=== PATIENT | female | born 1940 | race Caucasian/White ===

== ENCOUNTER → 2021-05-13 10:50 | Outpatient (BNVA) | payer MEDICARE, SELFPAY | PROVIDERS: PCP Nurse Practitioner; Visit Provider Nurse Practitioner | DX: E11.65 Type 2 diabetes mellitus with hyperglycemia (principal); I10 Essential (primary) hypertension | CPT/HCPCS: 80053; 80061; 83036; 84443 ==

== ENCOUNTER → 2021-07-29 12:21 | Outpatient (BNVA) | payer MEDICARE, SELFPAY | PROVIDERS: PCP Nurse Practitioner; Visit Provider Nurse Practitioner | DX: E11.65 Type 2 diabetes mellitus with hyperglycemia (principal); E03.8 Other specified hypothyroidism; I10 Essential (primary) hypertension | CPT/HCPCS: 80053; 83036 ==

== ENCOUNTER → 2022-01-06 12:09 | Outpatient (BNVA) | payer MEDICARE, SELFPAY | PROVIDERS: PCP Nurse Practitioner; Visit Provider Nurse Practitioner | DX: I10 Essential (primary) hypertension (principal); E11.65 Type 2 diabetes mellitus with hyperglycemia | CPT/HCPCS: 80053; 80061; 83036; 84443 ==

== ENCOUNTER → 2022-06-02 12:41 | Outpatient (BNVA) | payer MEDICARE, SELFPAY | PROVIDERS: PCP Nurse Practitioner; Visit Provider Nurse Practitioner | DX: E11.65 Type 2 diabetes mellitus with hyperglycemia (principal) | CPT/HCPCS: 80053; 80061; 83036; 84443 ==

== ENCOUNTER → 2022-12-22 09:05 | Outpatient (BNVA) | payer MEDICARE, SELFPAY | PROVIDERS: PCP Nurse Practitioner; Visit Provider Nurse Practitioner | DX: E11.65 Type 2 diabetes mellitus with hyperglycemia (principal) | CPT/HCPCS: 80053; 80061; 83036 ==

== ENCOUNTER → 2022-12-23 10:33 | Outpatient (BNVA) | payer MEDICARE, SELFPAY | PROVIDERS: PCP Nurse Practitioner; Visit Provider Nurse Practitioner | DX: E11.65 Type 2 diabetes mellitus with hyperglycemia (principal) | CPT/HCPCS: 82043 ==

== ENCOUNTER → 2024-08-09 14:30 | Outpatient (BNVA) | payer MEDICARE, SELFPAY | PROVIDERS: PCP Nurse Practitioner; Visit Provider Podiatrist Foot & Ankle Surgery | DX: L60.3 Nail dystrophy (principal); M20.41 Other hammer toe(s) (acquired), right foot; M20.42 Other hammer toe(s) (acquired), left foot; M21.619 Bunion of unspecified foot; E11.69 Type 2 diabetes mellitus with other specified complication | CPT/HCPCS: 99203 ==

== ENCOUNTER → 2025-01-07 09:01 | Outpatient (BNVA) | payer MEDICARE, SELFPAY | PROVIDERS: PCP Nurse Practitioner; Visit Provider Nurse Practitioner | DX: I51.7 Cardiomegaly (principal) | CPT/HCPCS: 71046 ==

== ENCOUNTER 2025-02-04 11:59 | Outpatient (CLI) | payer MEDICARE, SELFPAY ==
--- NOTE | 2025-02-04 12:00 | USCV_ITS ---
Nery Jimenes Age: 84 Gender: F : 1940 Exam Date: 02/04/2025 12:25 Ordering Phys: Chacho Jacobson Technologist: Exam Location: [facility] [place] Indication: CP BP: 123 / 70 HR: 56 Rhythm: Sinus Technical Quality: MEASUREMENTS (Male / Female) Normal Values 2D ECHO LV Diastolic Diameter PLAX 4.6 cm 4.2 - 5.9 / 3.9 - 5.3 cm IVS Diastolic Thickness 1.1 cm 0.6 - 1.0 / 0.6 - 0.9 cm IVS Systolic Thickness 1.3 cm LVPW Diastolic Thickness 1.2 cm 0.6 - 1.0 / 0.6 - 0.9 cm LVPW Systolic Thickness 1.7 cm LVOT Diameter 1.9 cm LV Ejection Fraction 2D Teich 73.7 % LV Ejection Fraction MOD 4C 53.9 % LV Ejection Fraction MOD 2C 61.0 % LV Ejection Fraction 2C AL 62.0 % LA Diameter 3.3 cm RA Systolic Volume 4C AL 29.4 ml RA Systolic Volume 4C MOD 27.8 ml Aorta at Sinotubular Diameter 3.0 cm IVC Diameter 1.5 cm M-MODE LA Ao Ratio MM 1.1 AV Cusp Separation MM 2.1 cm DOPPLER LVOT Peak Velocity 83.0 cm/s MV Peak Velocity 93.0 cm/s MV Area PHT 3.1 cm squared Mitral E to A Ratio 0.8 TV Peak Velocity 265.0 cm/s TR Peak Velocity 315.0 cm/s TR Peak Gradient 39.7 mmHg TV Peak E Velocity 95.0 cm/s PV Peak Velocity 88.0 cm/s FINDINGS Left Ventricle Normal left ventricular size and systolic function, EF 61%. No regional wall motion abnormalities. Right Ventricle Normal right ventricular size and systolic function. Right Atrium Normal right atrial size. Left Atrium Normal left atrial size. Mitral Valve Trace mitral valve regurgitation. Aortic Valve Trace aortic valve regurgitation. Thickened aortic valve. Tricuspid Valve Mild tricuspid valve regurgitation. Estimated pulmonary artery peak systolic pressure 46 mmHg Pulmonic Valve Pulmonic valve not well visualized. Pericardium No pericardial effusion. Aorta Normal aortic annulus size. IVC Normal inferior vena cava. CONCLUSIONS Normal left ventricular size and systolic function, EF 61%. No regional wall motion abnormalities. Trace mitral valve regurgitation. Thickened aortic valve. Trace aortic valve regurgitation. Mild tricuspid valve regurgitation. Estimated pulmonary artery peak systolic pressure 46 mmHg. There are no intracardiac masses. There is no pericardial effusion. No similar previous studies are available for comparison Dr Angelita Heller MD [facility] (Electronically Signed) Final Date: 05 February 2025 20:19 S
== END 2025-02-04 12:00 | disposition home or self-care (01) ==
PROVIDERS: PCP Nurse Practitioner; Visit Provider Nurse Practitioner
DX: R06.09 Other forms of dyspnea (principal); I10 Essential (primary) hypertension; I35.8 Other nonrheumatic aortic valve disorders; I07.1 Rheumatic tricuspid insufficiency
CPT/HCPCS: 93306

== ENCOUNTER → 2025-04-09 10:57 | Outpatient (BNVA) | payer MEDICARE, SELFPAY | PROVIDERS: PCP Nurse Practitioner; Visit Provider Nurse Practitioner | DX: E11.65 Type 2 diabetes mellitus with hyperglycemia (principal); R06.09 Other forms of dyspnea; E55.9 Vitamin D deficiency, unspecified; R60.9 Edema, unspecified; R53.83 Other fatigue | CPT/HCPCS: 71046; 80053; 82306; 82607; 83036; 83880; 84443; 85025 ==

== ENCOUNTER 2025-06-04 23:28 | Observation (INO) | payer MEDICARE, SELFPAY ==
--- OUTSIDE RECORDS SUMMARY | 2017-12-22 09:00 | XMS_ITS | Continuity of Care Document ---
Author Organization [facility] Address [address] [address] Phone Care Team Providers Care Director Veterinary Name Role Phone Mihir Rothman MD Unavailable Unavailabl e Allergies, Adverse Reactions, Alerts Substance Reaction Status Criticality nitrous oxide Active No Information pravastatin Active No Information Medications Medication Instructions Dosage Effective Dates (start - stop) Status Comments GLIMEPIRIDE (unknown strength) Not Available - Active ABILIFY (unknown strength) Not Available - Active TYLENOL (unknown strength) Not Available - Active BACITRACIN (unknown strength) Not Available - Active CALCIUM (unknown strength) Not Available - Active CARBIDOPA-LEVODOPA (unknown strength) Not Available - Active COREG (unknown strength) Not Available - Active DOCUSATE SODIUM (unknown strength) Not Available - Active DULCOLAX (unknown strength) Not Available - Active GLUCAGON HCL (unknown strength) Not Available - Active IRON (unknown strength) Not Available - Active LEVOTHYROXINE SODIUM (unknown strength) Not Available - Active LEXAPRO (unknown strength) Not Available - Active LISINOPRIL (unknown strength) Not Available - Active METFORMIN HCL (unknown strength) Not Available - Active MILK OF MAGNESIA (unknown strength) Not Available - Active MULTIVITAMINS (unknown strength) Not Available - Active NORVASC (unknown strength) Not Available - Active VITAMIN D3 (unknown strength) Not Available - Active XANAX (unknown strength) Not Available - Active AMLODIPINE BESILATE (unknown strength) Not Available - Active POLYBASE (unknown strength) Not Available - Active NOVOLOG (unknown strength) inject by subcutaneous route per prescriber's instructions. Insulin dosing requires individualization. Not Available - Active GLIMEPIRIDE (unknown strength) Not Available - No Longer Active HYDROCODONE-ACETAMI NOPHEN (unknown strength) Not Available - No Longer Active Procedures Procedure Date Ankle X-Ray 3 Views (AP, LAT, OBL) POSTOP FOLLOW-UP VISIT Ankle X-Ray 3 Views (AP, LAT, OBL) INITIAL HOSPITAL CARE TREATMENT OF FIBULA FRACTURE Wrist X-Ray 3 Views (PA, LAT, OBL) OFFICE/OUTPATIENT VISIT, NEW Advance Directives Directive Yes / No Effective Date File Name Life Support Not Answered N/A N/A Intubation Not Answered N/A N/A Antibiotics Not Answered N/A N/A IV Fluid Support Not Answered N/A N/A Tube Feed Not Answered N/A N/A Other Directive N/A N/A WARNING:The information contained in this section is historical and is provided for information only and does not constitute a legal document or any assurance that the information is still accurate. Please verify the information with the coppola of the legal document before using it for clinical purposes. Encounters Encounter Description Practice Location Reason(s) For Visit Diagnoses Date Provider Providers Copied on Encounter [facility], [address] [place] [address], [id number], tel:[phone] [facility] Closed displaced comminuted fracture of shaft of right fibula with routine healing, subsequent encounter 8 Stephan [facility]. [facility] [place], [id number], [place]. tel:[phone] Referring Provider: Jessica Cline, [address] [place], [address] . tel:[phone] INITIAL HOSPITAL CARE [facility], [address] [place] [address], [id number], tel:[phone] [facility] TRAUMA No Information 8 Stephan Vega. [facility] [place], [id number], [place]. tel:[phone] OFFICE/OUTPAT IENT VISIT, [facility], [address] [place], [place], [id number], [place] tel:[phone] [facility] Colles' fracture, closed 4 Sj Sarkar. [address] [place] [address], [id number], [place]. tel:[phone] Referring Provider: Jessica Cline, Replaced by [facility] [place], [address] . tel:[phone] Family History Family Member Type Diagnosis Age At Onset Problem (finding) Family history of Cance r Problem (finding) Family history of Diabe ines Problem (finding) Family history of DVT/P E Payers Payer name Insurance type Covered green party ID Authoriza tion(s) [facility] PPO [place] Complete CI [id number] Social History Type Description Quantity Date Captured Comments Alcohol Use Details No Caffeine Use Details Unknown Tobacco Use Status No Information Smoking Status Never smoker Non-Smoking Tobacco Use Details : No Details Available : No Details Available Sex Female Chief Complaint And Reason For Visit No Information Reason For Referral Reason For Referral No Information History Of Present Illness Encounter Date Complaint History Of Prese nt Illness No Information Functional Status Date Functional Assessmen t Pain Score 0/10 Instructions Date Instruction Additional Infor mation No Information Assessments Type Assessment Date assessment Closed displaced com minuted fracture of shaft of right fibula with routine healing, subsequent encounter Patient Care Teams Name Effective Dates (start - stop) Status Members No Information
[2025-06-04 23:45] VITALS: BP 162/98; PULSE 70; RESP 17; TEMP 36.7; O2SAT 98; BMI 29.7
--- NOTE | 2025-06-04 23:46 | ECG_ITS ---
[employer] Test Date: 2025-06-04 Pat Name: Nery Jimenes Department: Room: Gender: Female L Tacker: : 1940 Requested By: Alexander Champagne Order Number: [id number] Laverne MD: Angelita Heller M.D. Measurements Intervals [place] Rate: 62 P: 54 MS: 161 QRS: -18 QRSD: 78 T: 6 QT: 405 QTc: 411 Interpretive Statements SINUS RHYTHM LOW QRS VOLTAGE IN PRECORDIAL LEADS [QRS DEFLECTION < 1.0 mV IN CHEST LEADS] POSSIBLE ANTERIOR MYOCARDIAL INFARCTION , PROBABLY OLD [30 ms Q WAVE IN V3/V4, OR R < 0.2 mV IN V4] No previous ECG available for comparison Electronically Signed On 06-05-2025 09:18:35 CDT by Angelita Heller M.D. [id number]
--- NOTE | 2025-06-04 23:50 | XRR_ITS ---
PROCEDURE INFORMATION: Exam: XR Chest Exam date and time: 06/05/2025 1:00 AM Age: 84 years old Clinical indication: Dyspnea; Additional info: SOB TECHNIQUE: Imaging protocol: Radiologic exam of the chest. Views: 1 view. COMPARISON: CR XR chest 2V* [id number] 04/09/2025 10:57 AM FINDINGS: Lungs: Few scattered strands, nonspecific although commonly chronic. Unremarkable. No consolidation. Pleural spaces: Unremarkable. No pleural effusion. No pneumothorax. Heart/Mediastinum: Aortic atherosclerosis. Tortuosity of the aorta. Otherwise Unremarkable. No cardiomegaly. Bones/joints: Degenerative changes of the bilateral AC joints. Unremarkable. XR/XR chest 1V portable [id number] IMPRESSION: No acute findings.
--- NOTE | 2025-06-04 23:50 | CTR_ITS ---
PROCEDURE INFORMATION: Exam: CTA Chest With Contrast Exam date and time: 06/05/2025 1:08 AM Age: 84 years old Clinical indication: Dyspnea; Additional info: Concern for pe TECHNIQUE: Imaging protocol: Computed tomographic angiography of the chest with contrast. Exam focused on the arteries. 3D rendering (Not supervised by radiologist): MIP and/or 3D reconstructed images were created by the technologist. Radiation optimization: All CT scans at this facility use at least one of these dose optimization techniques: automated exposure control; mA and/or kV adjustment per patient size (includes targeted exams where dose is matched to clinical indication); or iterative reconstruction. Contrast material: OMNI 350; Contrast volume: 65 ml; Contrast route: INTRAVENOUS (IV); COMPARISON: CR XR chest 1V portable [id number] 06/05/2025 1:00 AM RADIATION DOSE METRICS: Total DLP (mGy-cm): 317.05 FINDINGS: Pulmonary arteries: Normal. No pulmonary emboli. Aorta: Aortic and coronary atherosclerosis. Lungs: Unremarkable. No consolidation. No masses. Pleural spaces: Unremarkable. No pneumothorax. No pleural effusion. Heart: Unremarkable. No cardiomegaly. No pericardial effusion. Esophagus: Probable thickening of the esophagus, could be related to inflammatory changes or reflux with other etiologies not excluded. Lymph nodes: Unremarkable. No enlarged lymph nodes. Diaphragm: Ojdh-tg-ovwufxqv hiatal hernia. Bones/joints: Foux-cn-yeuhgwni degenerative changes of vertebral bodies with multilevel endplate spurring and disc space narrowing. Soft tissues: Unremarkable. CT/CT angio chest PE protcl [id number] IMPRESSION: No definitive radiographic evidence of pulmonary embolism. No acute infiltrate. Aortic and coronary atherosclerosis. Probable thickening of the esophagus, could be related to inflammatory changes or reflux with other etiologies not excluded. Zkzl-qw-jalccuyy hiatal hernia.
--- NOTE | 2025-06-04 23:52 | ED_ITS ---
HPI - SOB/Dyspnea 2 General: Chief Complaint: Shortness of Breath/Dyspnea Stated Complaint: SOB, Tremors, something in throat Time Seen by Provider: 06/04/25 23:41 History of Present Illness: HPI Narrative: Patient comes in with shortness of breath, and tremors. States that tonight she started to feel generalized weakness and had an episode where she felt short of breath. States that she also after taking her medication felt like she had something stuck in her throat. States she is drank a bunch of water without improvement in the foreign body symptoms. States that her symptoms have mostly passed at this time. She denies any chest pain, fever, cough, congestion, abdominal pain, vomiting. On physical exam she has mildly dry mucous membranes. Will check labs, EKG, give IV fluids, check CTA chest, and reassess. Related Data Previous Rx's ?Medication ?Instructions ?Recorded mupirocin 2 % topical ointment 1 applic topical BID #2 2 grams 07/12/24 brompheniramine-phenylephrine 1 5 ml PO .12 hours PRN cold 02/11/25 mg-2.5 mg/5 mL oral solution symptoms #118 mL (Dimetapp Cold-Allergy (brom-PE)) amlodipine 5 mg tablet (Norvasc) 5 mg PO DAILY #90 tab s 04/12/25 aripiprazole 5 mg tablet (Abilify) 5 mg PO DAILY #90 t abs 04/12/25 carvedilol 25 mg tablet (Coreg) 25 mg PO BID #180 tabs 04/12/25 furosemide 20 mg tablet (Lasix) 20 mg PO QAM #90 tabs 04/12/25 levothyroxine 50 mcg tablet 50 mcg PO DAILY #90 tabs 0 04/12/25 (Synthroid) lisinopril 40 mg tablet (Zestril) 40 mg PO DAILY #90 t abs 04/12/25 rosuvastatin 5 mg tablet 5 mg PO DAILY #90 tabs 04/12 sertraline 50 mg tablet (Zoloft) 50 mg PO .6pm #90 tab s 04/12/25 sitagliptin phosphate 100 mg 100 mg PO DAILY #90 tabs 04/12/25 tablet (Januvia) multivitamin (Daily Multi-Vitamin 1 tab PO DAILY #90 t abs 05/17/25 tablet) blood sugar diagnostic (Accu-Chek #100 ea 05/23/25 Guide test strips) blood-glucose meter (Accu-Chek #1 ea 05/23/25 Guide Me Glucose Meter) Allergies Allergy/AdvReac Type Severity Reaction Status Date / Time No Known Allergies Allergy Verified 05/17/25 11:05 Review of Systems 2 Const: Reports: chills and fatigue Resp: Reports: dyspnea GI: Reports: diarrhea PFSH ED 2 PFSH: Medical History (Updated 06/05/25 @ 01:52 by Aleaxnder Champagne MD) DNR no code (do not resuscitate) Diabetes mellitus with hyperglycemia, without long-term current use of insulin Lives in assisted living facility Encounter for herb and vitamin supplement management Adult onset hypothyroidism Hyperlipidemia, mixed Essential (primary) hypertension Parkinson disease Surgical History History of bilateral tubal ligation History of section 2 times History of appendectomy History of hysterectomy with unilateral oophorectomy Age 43 History of cataract surgery Bilateral History of umbilical hernia repair Family History Grandmother Diabetes Social History Smoking and tobacco/nicotine status: never used tobacco/nicotine Alcohol intake: former Additional social history: Use walking sticks two Caregiver/support person: Yes Lives independently: No Housing: Assisted Living Facility Marital status: / Number of children: 3 Number of grandchildren: 10 Highest education level completed: 8th Grade Education level details: Graduated 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 occupational status: retired Current gender identity: Female Female Reproductive History: Para: 3 Physical Exam 2 Const: COMMON NORMALS: no acute distress, patient oriented x3 and alert HENMT: COMMON NORMALS: normocephalic and atraumatic HEAD & SCALP: n ormocephalic and atraumatic Neck/C-Spine: COMMON NORMALS: full ROM and supple Resp: COMMON NORMALS: normal respiratory effort, No retractions and No use of accessory muscles Cardio: COMMON NORMALS: regular rate and regular rhythm RATE: regular rate RHYTHM: regular rhythm GI: COMMON NORMALS: Normal to inspection, nondistended, normoactive bowel sounds present, Soft to palpation and non-tender PALPATION: Yes Soft to palpation Extremity: NARRATIVE EXTREMITY EXAM: Chronic venous stasis changes of bilateral lower extremities Neuro: COMMON NORMALS: patient oriented x3 SENSORIUM/ORIENTATION: Yes alert Psych: COMMON NORMALS: mental status grossly normal and cooperative Course 2 Vital Signs: Vital signs: Vital Signs Temperature 98.1 F 06/04/25 23:45 Pulse Rate 72 06/05/25 01:42 Respiratory Rate 17 06/04/25 23:45 Blood Pressure 142/93 06/05/25 01:42 Pulse Oximetry 96 06/05/25 01:42 Oxygen Delivery Me thod Room Air 06/05/25 01:42 MDM - SOB/Dyspnea Medical Decision Making On reassessment I talked to the patient about her test results. Her initial troponin came back at 30. Given her symptoms of shortness of breath, generalized weakness and concern for foreign body in her esophagus I am concerned for NSTEMI. Will continue to trend her troponins. With I discussed the case with the hospitalist we will admit for cardiac workup. Lab Data 06/05/25 00:22 06/05/25 00:22 Labs/Radiology: Radiology Impressions Chest CTA 06/04/25 23:50 IMPRESSION: No definitive radiographic evidence of pulmonary embolism. No acute infiltrate. Aortic and coronary atherosclerosis. Probable thickening of the esophagus, could be related to inflammatory changes or reflux with other etiologies not excluded. Xpsk-eb-twzhilvb hiatal hernia. Chest X-Ray 06/04/25 23:50 IMPRESSION: No acute findings. Laboratory Results WBC 8.74 10^3/uL (3.29-11.43) 06/05/25 00:22 RBC 4.57 10^6/uL (3.85-5.65) 06/05/25 00:22 Hgb 13.10 g/dL (11.27-16.99) 06/05/25 00:22 Hct 39.5 % (36-47) 06/05/25 00:22 MCV 86.4 fl (85-98) 06/05/25 00:22 MCH 28.7 pg (27-33) 06/05/25 00:22 MCHC 33.2 g/dL (30-55) 06/05/25 00:22 RDW 14.4 % (12.1-15.1) 06/05/25 00:22 Plt Count 146 10^3/cmm (157-399) L 06/05/25 00:22 MPV 10.1 fL (7.4-10.4) 06/05/25 00:22 Neut % (Auto) 71.1 % 06/05/25 00:22 Lymph % (Auto) 17.3 % 06/05/25 00:22 [place] % (Auto) 7.9 % 06/05/25 00:22 Eos % (Auto) 2.7 % 06/05/25 00:22 Baso % (Auto) 0.7 % 06/05/25 00:22 Neut # (Auto) 6.21 10^3/uL (1.8-7.7) 06/05/25 00:22 Lymph # (Auto) 1.5 10^3/uL (0.8-4.8) 06/05/25 00:22 [place] # (Auto) 0.7 10^3/uL (0.2-0.9) 06/05/25 00:22 Eos # (Auto) 0.2 10^3/uL (0.0-0.8) 06/05/25 00:22 Baso # (Auto) 0.1 10^3/uL (0.0-0.1) 06/05/25 00:22 Nucleated RBC % (auto) 0 % 06/05/25 00: Nucleated RBCs # 0.0 /100WBC 06/05/25 00:22 Sodium 135 mmol/L (136-145) L 06/05/25 00:22 Potassium 4.0 mmol/L (3.5-5.1) 06/05/25 00:22 Chloride 96 mmol/L (98-107) L 06/05/25 00:22 Carbon Dioxide 24 mmol/L (22-29) 06/05/25 00:22 Anion Gap 19.0 (5-19) 06/05/25 00:22 BUN 21 mg/dL (8-23) 06/05/25 00:22 Creatinine 0.8 mg/dL (0.5-0.9) 06/05/25 00:22 GFR Calculation Not Reportable 06/05/25 00:22 Glucose 142 mg/dL (65-115) H 06/05/25 00:22 Calculated Osmolality 285 mOsm/kg (285-295) 06/05/25 00:22 Calcium 9.2 mg/dL (8.5-10.5) 06/05/25 00:22 Magnesium 1.7 mg/dL (1.7-2.3) 06/05/25 00:22 Total Bilirubin 0.7 mg/dL (0.15-1.2) 06/05/25 00:22 AST 19 U/L (0-32) 06/05/25 00: ALT 12 U/L (0-33) 06/05/25 00:22 Alkaline Phosphatase 72 U/L (35-105) 06/05/25 00: Troponin T Baseline 30 ng/L (0-10) H 06/05/25 00:22 Total Protein 6.8 g/dL (6.6-8.7) 06/05/25 00:22 Albumin 4.2 g/dL (3.5-5.2) 06/05/25 00: Globulin 2.6 g/dL (1.3-4.6) 06/05/25 00:22 Urine Color Yellow (Yellow) 06/05/25 00:09 Urine Appearance Clear (CLEAR) 06/05/25 00:09 Urine pH 6.0 (5-7) 06/05/25 00:09 Ur Specific Nelson 1.008 (1.005-1.030) 06/05/25 00:09 Urine Protein Negative (Negative) 06/05/25 00:09 Urine Glucose (UA) Negative (Normal) 06/05/25 00:09 Urine Ketones Negative (Negative) 06/05/25 00:09 Urine Blood Negative (Negative) 06/05/25 00:09 Urine Nitrate Negative (Negative) 06/05/25 00:09 Urine Bilirubin Negative (Negative) 06/05/25 00:09 Urine Urobilinogen 0.2 mg/dL (Negative) 06/05/25 00:09 Ur Leukocyte Esterase Trace (Negative) A 06/05/25 00:09 Urine RBC 0-2 /hpf (0-2) 06/05/25 00:09 Urine WBC 0-5 /hpf (0-5) 06/05/25 00:09 Ur Squamous Epith Cells 0-5 /hpf (0-5) 06/05/25 00:09 Amorphous Sediment Not Reportable 06/05/25 00:09 Urine Bacteria None seen /hpf (NONE) 06/05/25 00:09 Hyaline Casts 0-4 /lpf H 06/05/25 00:09 All radiology interpretation(s) finalized by discharge Discharge Plan Discharge Patient Disposition: Placed in Observation Clinical Impression: Elevated troponin Coding Level of Care Code ED Fruit And Vegetable Inspector for Peggy Frey
[2025-06-05] VITALS (9 sets, daily range): BP systolic 94–151; BP diastolic 59–93; PULSE 67–168; RESP 19–22; TEMP 36.1–37; O2SAT 93–97; BMI 26.3
[2025-06-05 00:23] LABS: Glucose Urine UA Negative (Normal); Nitrate Urine Negative (Negative); Specific Gravity, Urine 1.008 (1.005-1.030)
[2025-06-05 00:28] LABS: Add Urine Microscopic? YES
[2025-06-05 00:38] LABS: Hematocrit 39.5 % (36-47); Hemoglobin 13.10 g/dL (11.27-16.99); Mean Corpuscular HGB Conc 33.2 g/dL (30-55); Mean Corpuscular Hemoglobin 28.7 pg (27-33); Mean Corpuscular Volume 86.4 fl (85-98); Nucleated Red Blood Cells % 0 %; Platelet Count 146 10^3/cmm (157-399); Red Blood Count 4.57 10^6/uL (3.85-5.65); White Blood Count 8.74 10^3/uL (3.29-11.43)
[2025-06-05 00:50] LABS: Troponin(5th) Baseline 30 ng/L (0-10)
[2025-06-05 00:53] LABS: Alanine Aminotransferase 12 U/L (0-33); Albumin Level 4.2 g/dL (3.5-5.2); Alkaline Phosphatase 72 U/L (35-105); Anion Gap 19.0 (5-19); Aspartate Amino Transferase 19 U/L (0-32); Blood Urea Nitrogen 21 mg/dL (8-23); Calcium 9.2 mg/dL (8.5-10.5); Carbon Dioxide 24 mmol/L (22-29); Chloride 96 mmol/L (98-107); Creatinine Clr Calc Pharmacy 48.1455; Globulin 2.6 g/dL (1.3-4.6); Glucose 142 mg/dL (65-115); Magnesium 1.7 mg/dL (1.7-2.3); Osmolality Calculated 285 mOsm/kg (285-295); Potassium 4.0 mmol/L (3.5-5.1); Sodium 135 mmol/L (136-145); Total Protein 6.8 g/dL (6.6-8.7)
[2025-06-05] MEDS: iohexol 350 mg/mL 500 mL Btl (per mL) IV (01:12)
--- NOTE | 2025-06-05 01:51 | ECG_ITS ---
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 Measurements Intervals [place] Rate: 72 P: 93 ND: 178 QRS: -30 QRSD: 78 T: -3 QT: 417 QTc: 459 Interpretive Statements SINUS RHYTHM LOW QRS VOLTAGE IN PRECORDIAL LEADS [QRS DEFLECTION < 1.0 mV IN CHEST LEADS] POSSIBLE ANTERIOR MYOCARDIAL INFARCTION , OF INDETERMINATE AGE [30 ms Q WAVE IN V3/V4, OR R < 0.2 mV IN V4] INFERIOR MYOCARDIAL INFARCTION , PROBABLY OLD [40+ ms Q WAVE AND/OR ST/T ABNORMALITY IN II/aVF] Compared to ECG 06/04/2025 23:46:03 No significant changes Electronically Signed On 06-05-2025 09:21:21 CDT by Angelita Heller M.D. [id number]
--- NOTE | 2025-06-05 02:44 | USCV_ITS ---
Nery Jimenes Age: 84 Gender: F : 1940 Exam Date: 06/05/2025 03:14 Ordering Phys: Elpidio Romo MD Technologist: ZEINAB Exam Location: [facility] [place] Indication: chest pain, SOB, tremors, weakness BP: 151 / 84 HR: 63 Rhythm: Sinus Technical Quality: Adequate MEASUREMENTS (Male / Female) Normal Values 2D ECHO LV Diastolic Diameter PLAX 4.1 cm 4.2 - 5.9 / 3.9 - 5.3 cm IVS Diastolic Thickness 0.9 cm 0.6 - 1.0 / 0.6 - 0.9 cm IVS Systolic Thickness 1.8 cm LVPW Diastolic Thickness 1.2 cm 0.6 - 1.0 / 0.6 - 0.9 cm LVPW Systolic Thickness 1.4 cm LVOT Diameter 1.9 cm LV Ejection Fraction 2D Teich 68.3 % LV Ejection Fraction MOD 4C 51.5 % LV Ejection Fraction MOD 2C 61.0 % LV Ejection Fraction 2C AL 59.7 % LA Diameter 3.9 cm Aorta at Sinotubular Diameter 2.8 cm IVC Diameter 1.1 cm M-MODE LA Ao Ratio MM 1.4 AV Cusp Separation MM 1.8 cm DOPPLER AV Peak Velocity 132.0 cm/s LVOT Peak Velocity 97.0 cm/s AV Area Cont Eq vti 2.1 cm squared AV Area Cont Eq pk 2.1 cm squared MV Peak Velocity 90.0 cm/s MV Area PHT 2.3 cm squared Mitral E to A Ratio 0.8 TV Peak Velocity 284.7 cm/s TR Peak Velocity 293.0 cm/s TR Peak Gradient 34.3 mmHg TV Peak E Velocity 49.0 cm/s PV Peak Velocity 95.0 cm/s FINDINGS Left Ventricle Normal left ventricular size and systolic function, EF 61%.no regional wall motion abnormalities. . Right Ventricle The right ventricle is normal in size and function. Right Atrium The right atrium is normal in size. Left Atrium The left atrium is normal in size. Mitral Valve No gross abnormalities noted Aortic Valve Thickened aortic valve. Trace to mild aortic valve regurgitation. Tricuspid Valve Mild tricuspid valve regurgitation. Pulmonic Valve No gross abnormalities noted Pericardium No significant pericardial effusion Aorta Normal aortic annulus size. IVC Normal inferior vena cava. CONCLUSIONS Normal left ventricular size and systolic function, EF 61%. No regional wall motion abnormalities. . Thickened aortic valve. Trace to mild aortic valve regurgitation. Mild tricuspid valve regurgitation. Estimated pulmonary artery peak systolic pressure 37 mmHg No significant pericardial effusion. There are no intracardiac masses. Compared to the study from 02/04/2025, there may not be a significant change Dr Angelita Heller MD [facility] (Electronically Signed) Final Date: 05 June 2025 21:10 S
--- NOTE | 2025-06-05 02:45 | PM.HP ---
Providers/Chief Complaint Admitting Physician: Elpidio Romo MD Primary Care Provider: Chacho Jacobson, DIRECTOR CHILD ABUSE THERAPY-C Chief Complaint: SOB, Tremors, something in throat History of Present Illness Nery Jimenes is a 84 year old female with a past medical history of type 2 diabetes mellitus, hypothyroidism, hypertension who presents [facility] due to odynophagia, atypical chest pain, weakness. Patient tells me that tonight she was taking her pills, when she felt as if that pill was stuck in her mid chest, in her esophagus, she drank a whole glass of water but continued to have a sensation of chest discomfort, associate with weakness, fatigue, she also had a tremor during this episode, she also reports increased shortness of breath recently, with lower extremity edema, eventually the pain sensation passed Review of Systems Const: Denies: fever(s) Card: Reports: chest pain Resp: Reports: dyspnea Medications/Allergies Home Medications ?Medication ?Instructions ?Recorded ?Confirmed ?Last Taken ?Type mupirocin 2 % topical ointment 1 applic topical BID #22 grams 07/12/24 05/17/25 Unknown Rx brompheniramine-phenylephrine 1 5 ml PO .12 hours PRN cold 02/11/25 05/17/25 Unknown Rx mg-2.5 mg/5 mL oral solution symptoms #118 mL (Dimetapp Cold-Allergy (brom-PE)) amlodipine 5 mg tablet (Norvasc) 5 mg PO DAILY #90 tabs 04/12/25 05/17/25 Unknown Rx aripiprazole 5 mg tablet (Abilify) 5 mg PO DAILY #90 tabs 04/12/25 05/17/25 Unknown Rx carvedilol 25 mg tablet (Coreg) 25 mg PO BID #180 tabs 04/12/25 05/17/25 Unknown Rx furosemide 20 mg tablet (Lasix) 20 mg PO QAM #90 tabs 04/12/25 05/17/25 Unknown Rx levothyroxine 50 mcg tablet 50 mcg PO DAILY #90 tabs 04/12/25 05/17/25 Unknown Rx (Synthroid) lisinopril 40 mg tablet (Zestril) 40 mg PO DAILY #90 tabs 04/12/25 05/17/25 Unknown Rx rosuvastatin 5 mg tablet 5 mg PO DAILY #90 tabs 04/12/25 05/17/25 Unknown Rx sertraline 50 mg tablet (Zoloft) 50 mg PO .6pm #90 tabs 04/12/25 05/17/25 Unknown Rx sitagliptin phosphate 100 mg 100 mg PO DAILY #90 tabs 04/12/25 05/17/25 Unknown Rx tablet (Januvia) multivitamin (Daily Multi-Vitamin 1 tab PO DAILY #90 tabs 05/17/25 05/17/25 Unknown Rx tablet) blood sugar diagnostic (Accu-Chek #100 ea 05/23/25 Unknown Rx Guide test strips) blood-glucose meter (Accu-Chek #1 ea 05/23/25 Unknown Rx Guide Me Glucose Meter) Allergies Allergy/AdvReac Type Severity Reaction Status Date / Time No Known Allergies Allergy Verified 05/17/25 11:05 PFSH Acute PFSH: Medical History DNR no code (do not resuscitate) Diabetes mellitus with hyperglycemia, without long-term current use of insulin Lives in assisted living facility Encounter for herb and vitamin supplement management Adult onset hypothyroidism Hyperlipidemia, mixed Essential (primary) hypertension Parkinson disease Surgical History History of bilateral tubal ligation History of section 2 times History of appendectomy History of hysterectomy with unilateral oophorectomy Age 43 History of cataract surgery Bilateral History of umbilical hernia repair Family History Grandmother Diabetes Social History Smoking and tobacco/nicotine status: never used tobacco/nicotine Alcohol intake: former Additional social history: Use walking sticks two Caregiver/support person: Yes Lives independently: No Housing: Assisted Living Facility Marital status: / Number of children: 3 Number of grandchildren: 10 Highest education level completed: 8th Grade Education level details: Graduated 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 occupational status: retired Current gender identity: Female Female Reproductive History: Para: 3 Vitals/I&O/Wt Last Vital Signs Temp 98.1 F 06/04/25 23:45 Pulse 72 06/05/25 01:42 Resp 17 06/04/25 23:45 BP 142/93 06/05/25 01:42 Pulse Ox 96 06/05/25 01:42 O2 Del Method Room Air 06/05/25 01:42 Weight last 48 hrs Weight 71.395 kg Physical Exam Const: COMMON NORMALS: no acute distress and patient oriented x3 Resp: COMMON NORMALS: normal respiratory effort, No retractions, No use of accessory muscles and clear to auscultation bilaterally AUSCULTATION: clear to auscultation bilaterally Cardio: COMMON NORMALS: regular rate, regular rhythm, S1 normal heart sound present and S2 normal heart sound present RATE: regular rate RHYTHM: regular rhythm HEART SOUNDS: S1 normal heart sound present and S2 normal heart sound present GI: COMMON NORMALS: Normal to inspection, nondistended, normoactive bowel sounds present, Soft to palpation and non-tender Extremity: NARRATIVE EXTREMITY EXAM: 1+ pitting edema Neuro: COMMON NORMALS: patient oriented x3, CN's II-XII intact bilaterally and moves all extremities Psych: COMMON NORMALS: mental status grossly normal Data 06/05/25 00:22 06/05/25 00:22 A&P Assessment and plan 1. Odynophagia: 2. Elevated troponin: 3. Essential (primary) hypertension: 4. Atypical chest pain: 5. Bilateral lower extremity edema: Plan: Bilateral extremity edema - Lasix 40 mg IV push every 24 hours - Monitor creatinine, monitor potassium Atypical chest pain - Aspirin, statin, Coreg - Serial EKGs, serial troponins, telemetry monitoring - Cardiac echo - Will consider stress testing based on troponin trend Odynophagia - CT chest Probable thickening of the esophagus, could be related to inflammatory changes or reflux with other etiologies not excluded. [id number] hiatal hernia. - Potentially symptoms related to hiatal hernia - Protonix, Carafate - Based on clinical progress patient might require EGD Type 2 diabetes mellitus, low-dose sliding scale DNR/DNI Lovenox for DVT prophylaxis PDMP PDMP Reviewed: Not Reviewed Attestations Medical Necessity Statement*: Patient requires hospitalization, outpatient observation, for odynophagia, atypical chest pain, lower extremity edema Diagnoses Odynophagia R13.10 Elevated troponin R79.89 Essential (primary) hypertension I10 Atypical chest pain R07.89 Bilateral lower extremity edema R60.0
[2025-06-05 03:21] LABS: Troponin 5 2HR 26.05 ng/L (0-10)
[2025-06-05 03:22] LABS: Troponin 5 2HR Delta -3.95 ABS# (0-10)
[2025-06-05 03:30] LABS: NT Pro B Type Natriuretic Pept 569 pg/mL (0-450)
[2025-06-05] MEDS: pantoprazole 40 mg SDV IVP ×2 (04:45→17:33)
[2025-06-05] MEDS: sucralfate 1 gm/10 mL Oral Liq UDC PO ×4 (04:45→20:40)
[2025-06-05] MEDS: FUROsemide 10 mg/mL SDV 4mL 40 MG IVP (04:46)
--- NOTE | 2025-06-05 05:51 | ECG_ITS ---
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 Measurements Intervals [place] Rate: 70 P: 56 MD: 163 QRS: -30 QRSD: 80 T: 2 QT: 424 QTc: 460 Interpretive Statements SINUS RHYTHM LOW QRS VOLTAGE IN PRECORDIAL LEADS [QRS DEFLECTION < 1.0 mV IN CHEST LEADS] SEPTAL MYOCARDIAL INFARCTION , OF INDETERMINATE AGE [40+ ms Q WAVE IN V1/V2] INFERIOR MYOCARDIAL INFARCTION , PROBABLY OLD [40+ ms Q WAVE AND/OR ST/T ABNORMALITY IN II/aVF] Compared to ECG 06/05/2025 02:06:47 No significant changes Electronically Signed On 06-05-2025 09:21:12 CDT by Angelita Heller M.D. [email or web address]
[2025-06-05 06:31] LABS: Troponin 5 6HR 23.43 ng/L (0-10)
[2025-06-05 06:33] LABS: Troponin 5 6HR Delta -6.57 ng/L (0-12)
[2025-06-05 07:01] LABS: Cholesterol 157 mg/dL (0-200); HDL Cholesterol 65 mg/dL (60-100); Thyroid Stimulating Hormone 2.39 uIU/mL (0.27-4.20); Triglycerides 27 mg/dL (0-150)
[2025-06-05] MEDS: ATORVASTATIN 10 MG TABLET 20 MG PO (09:12)
--- NOTE | 2025-06-05 10:00 | ECG_ITS ---
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
--- NOTE | 2025-06-05 12:06 | P.CONIM_ITS ---
<Statement entered by Coleen Trinidad MD - 06/11/25 18:42> Patient was evaluated and cared for in conjunction with an advanced practice practitioner. I personally examined the patient and reviewed the chart and all pertinent data including imaging, telemetry, and laboratory results. I discussed the patient in detail with the advanced practice practitioner. Please see their note for complete H&P testing result and agreed upon plan of care for the patient. Providers/Reason For Consult 2 Consulting Physician/Specialty*: Dr. Trinidad Reason for Consult*: Chest pain Tachycardia Requesting Physician: Dawna Attending Physician: Dawna Olmos MD Primary Care Provider: GABRIEL Price-C History of Present Illness History of Present Illness Nery Jimenes is a 84 year old female who denies any significant cardiac history came into the emergency room yesterday with weakness and shortness of breath. She states that she took her medication and felt like something was stuck in her throat . She states she started to drink water but still felt like something was stuck in her throat. She is asymptomatic at this time. She states her symptoms passed on her own. She denies any chest pain at this time or shortness of breath. Denies any history of hypercholesterolemia. States she has never been a smoker. She does have a history of hypertension. She does have diabetes with an A1C of 6.7. At home she takes Coreg 25 mg twice daily, Lasix 20 mg daily, lisinopril 40 mg daily and amlodipine 5 mg daily. She does take rosuvastatin 5 mg p.o. daily. Vital signs are stable. Troponin was 30?20 6.05?23.43 with negative delta. proBNP slightly elevated at 569. On exam she appears euvolemic. She has an oxygen saturation of 95% on room air. Chest CTA showed no PE without acute infiltrate. Probable thickening of the esophagus with possible reflux and mild to moderate hiatal hernia, aortic and coronary atherosclerosis. X-ray showed no acute findings. Review of Systems 2 Narrative: Consitutional: denies fever, chills, body aches, or changes in appetite, denies abnormal weight loss Eyes: Denies changes in vision Card: Denies chest pain, palpitations, irregular heart rhythm, edema, syncope, shortness of breath, orthopnea, leg pain with exertion Resp: Denies shortness of breath, denies hemoptysis, denies cough GI: denies abdominal pain, denies nausea or vomiting Musc: Denies extremity pain, denies limited range of motion or recent injury Skin: Denies rash, lesions, or wounds, denies changes to skin color Neuro: Denies nubmness in extremities, h/a, s/s of stroke Orlin: Denies easy bruiding/bleeding Medications/Allergies Home Medications ?Medication ?Instructions ?Recorded ?Confirmed ?Last Taken ?Type brompheniramine-phenylephrine 1 5 ml PO .12 hours PRN cold 02/11/25 06/05/25 Unknown Rx mg-2.5 mg/5 mL oral solution symptoms #118 mL (Dimetapp Cold-Allergy (brom-PE)) amlodipine 5 mg tablet (Norvasc) 5 mg PO DAILY #90 tab s 04/12/25 06/05/25 06/04/25 Rx aripiprazole 5 mg tablet (Abilify) 5 mg PO DAILY #90 t abs 04/12/25 06/05/25 06/04/25 Rx carvedilol 25 mg tablet (Coreg) 25 mg PO BID #180 tabs 04/12/25 06/05/25 06/04/25 Rx furosemide 20 mg tablet (Lasix) 20 mg PO QAM #90 tabs 04/12/25 06/05/25 06/04/25 Rx levothyroxine 50 mcg tablet 50 mcg PO DAILY #90 tabs 0 04/12/25 06/05/25 06/04/25 Rx (Synthroid) lisinopril 40 mg tablet (Zestril) 40 mg PO DAILY #90 t abs 04/12/25 06/05/25 06/04/25 Rx rosuvastatin 5 mg tablet 5 mg PO DAILY #90 tabs 04/1206/05/25 06/04/25 Rx sertraline 50 mg tablet (Zoloft) 50 mg PO .6pm #90 tab s 04/12/25 06/05/25 06/03/25 Rx sitagliptin phosphate 100 mg 100 mg PO DAILY #90 tabs 04/12/25 06/05/25 06/04/25 Rx tablet (Januvia) multivitamin (Daily Multi-Vitamin 1 tab PO DAILY #90 t abs 05/17/25 06/05/25 06/04/25 Rx tablet) blood sugar diagnostic (Accu-Chek #100 ea 05/23/2504/24 Unknown Rx Guide test strips) blood-glucose meter (Accu-Chek #1 ea 05/23/25 06/05/25 Unknown Rx Guide Me Glucose Meter) polyvinyl alcohol 1.4 % eye drops 1 drp ophthalmic (ey e) BID 06/05/25 06/05/25 06/04/25 History Allergies Allergy/AdvReac Type Severity Reaction Status Date / Time No Known Allergies Allergy Verified 05/17/25 11:05 Current Medications Generic Name Dose Route Start Last Admin Trade Name Freq PRN Reason Stop Dose Admin Amlodipine Besylate 5 mg 06/05/25 09:00 06/05/25 09:12 Amlodipine 5 Mg Tablet PO 5 mg DAILY NATHALIE Administration Aripiprazole 5 mg 06/05/25 09:00 06/05/25 09:12 Aripiprazole 10 Mg Tablet PO 5 mg DAILY NATHALIE Administration Aspirin 81 mg 06/05/25 03:15 06/05/25 04:48 Aspirin 81 Mg Ec Tablet PO 81 mg DAILY NATHALIE Administration Atorvastatin Calcium 20 mg 06/05/25 09:00 06/05/25 09:12 Atorvastatin 10 Mg Tablet PO 20 mg DAILY NATHALIE Administration Carvedilol 25 mg 06/05/25 09:00 06/05/25 09:12 Carvedilol 25 Mg Tablet PO 25 mg BID NATHALIE Administration Enoxaparin Sodium 40 mg 06/05/25 03:15 06/05/25 04:47 Enoxaparin 40 Mg/0.4 Ml Syringe SUBCUT 40 mg Q24H NATHALIE Administration Furosemide 40 mg 06/05/25 03:15 06/05/25 04:46 Furosemide 10 Mg/Ml Sdv 4ml IVP 40 mg Q24H NATHALIE Administration Insulin Human Lispro 0 unit 06/05/25 08:00 06/05/25 09:12 Insulin Lispro 100 Unit/1 Ml SUBCUT 2 unit TIDWM NATHALIE Administration Protocol Levothyroxine Sodium 50 mcg 06/05/25 08:30 06/05/25 08:44 Levothyroxine 50 Mcg Tablet PO 50 mcg 0600 NATHALIE Administration Lisinopril 40 mg 06/05/25 09:00 06/05/25 09:12 Lisinopril 20 Mg Tablet PO 40 mg DAILY NATHALIE Administration Pantoprazole Sodium 40 mg 06/05/25 03:15 06/05/25 04:45 Pantoprazole 40 Mg Sdv IVP 40 mg Q12H NATHALIE Administration Sucralfate 1 gm 06/05/25 03:15 06/05/25 09:12 Sucralfate 1 Gm/10 Ml Oral Liq Udc PO 1 gm Q6H NATHALIE Administration PFSH Acute 2 PFSH: Medical History (Updated 06/05/25 @ 02:49 by Elpidio Romo MD) DNR no code (do not resuscitate) Diabetes mellitus with hyperglycemia, without long-term current use of insulin Lives in assisted living facility Encounter for herb and vitamin supplement management Adult onset hypothyroidism Hyperlipidemia, mixed Essential (primary) hypertension Parkinson disease Surgical History History of bilateral tubal ligation History of section 2 times History of appendectomy History of hysterectomy with unilateral oophorectomy Age 43 History of cataract surgery Bilateral History of umbilical hernia repair Family History Grandmother Diabetes Social History Smoking and tobacco/nicotine status: never used tobacco/nicotine Alcohol intake: former Additional social history: Use walking sticks two Caregiver/support person: Yes Lives independently: No Housing: Assisted Living Facility Marital status: / Number of children: 3 Number of grandchildren: 10 Highest education level completed: 8th Grade Education level details: Graduated 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 occupational 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: retired Current gender identity: Female Female Reproductive History: Para: 3 Vitals/I&O/Wt Last Vital Signs Temp 97.0 F L 06/05/25 11:39 Pulse 74 06/05/25 11:39 Resp 22 H 06/05/25 11:39 BP 94/59 06/05/25 11:39 Pulse Ox 95 06/05/25 11:39 O2 Del Method Room Air 06/05/25 11:39 06/04/25 06/05/25 06/05/25 22:59 06:59 14:59 Intake Total 500 / 500 720 / 720 Balance 500 / 500 720 / 720 Weight last 48 hrs Weight 155 lb 7 oz Weight 158 lb 4 oz Weight 157 lb 6.4 oz Physical Exam 2 Narrative: General: No apparent distress HENMT: normoceophalic Muskuloskeletal: Full ROM Respiratory: Normal respiratory effort, clear to auscultation bilaterally throughout all lung damon, no use of accessory muscles Cardio: No JVD, regular rate, regular rhythm, S1 S2 normal, no murmurs, peripheral pulses 2+ radial palpated bilaterally Extremities: Full ROM, normal, normal capillary refill, no cyanosis or edema Neuro: Alert and oriented x4, no focal motor deficits Psych: Affect normal, mental status grossly normal Skin: No rashes or lesions noted, no wounds Data 06/05/25 00:22 06/05/25 00:22 A&P Assessment and plan 1. Elevated troponin: 2. Essential (primary) hypertension: 3. Atypical chest pain: Plan: Patient has atypical chest pain which could be due to unterlying reflux disease or significant coronary artery disease as patient does have risk factors for this with hyperlipidemia, hypertension, and type 2 diabetes. Echo has been ordered but not read. Previous echo showed normal LV function without wall motion abnormalities. On the monitor, tachycardia seems to be from artifact from patient's tremors. HR has remained stable. Would agree with continuing coreg 25 mg BID with close monitoring. At this time, we recommend proceeding with a lexiscan stress test to rule out ischemia. Patient was educated on this and agrees to proceed. Thank you, Dr. Toney, for allowing us to care for this very pleasant 84 year old female. PDMP PDMP Reviewed: Not Reviewed Consult Attestations 2 Medical Necessity Statement: Deferred to primary. Coding Level of Care Code Acute Code for Chg Fwd Diagnoses Elevated troponin R79.89 Essential (primary) hypertension I10 Atypical chest pain R07.89
--- NOTE | 2025-06-05 14:56 | P.PN_ITS ---
Subjective 2 Subjective: Patient was seen in the morning, did not report any chest pain, shortness of breath or any dizziness. Currently stable and no acute concerns Vitals/I&O/Wt Last Vital Signs Temp 97.0 F L 06/05/25 11:39 Pulse 70 06/05/25 14:00 Resp 22 H 06/05/25 11:39 BP 94/59 06/05/25 11:39 Pulse Ox 95 06/05/25 11:39 O2 Del Method Room Air 06/05/25 11:39 06/04/25 06/05/25 06/05/25 22:59 06:59 14:59 Intake Total 500 / 500 1500 / 1500 Balance 500 / 500 1500 / 1500 Weight last 48 hrs Weight 70.505 kg Weight 71.781 kg Weight 71.395 kg Physical Exam 2 Narrative: General: Alert oriented x3, patient seen lying comfortably without any distress HEENT: Normocephalic, atraumatic, EOMI, breathing at room air with normal oxygen saturation Cardio: Regular rate rhythm, normal S1-S2, no murmurs rubs gallops, JVD normal Respiratory: Good bilateral air entry, no wheezes no rhonchi appreciated GI: Abdomen soft, nontender, nondistended, normoactive bowel sounds present all 4 quadrants, Neuro: Cranial nerves II to XII intact, strength 5/5, sensation 5/5, no gross neurological deficit Behavior: Appropriate and cooperative Extremities: Pulses 2+, trace edema, no cyanosis Skin: Visible skin intact, no rashes Data 06/05/25 00:22 06/05/25 00:22 A&P Assessment and plan 1. Odynophagia: Currently resolving and continue to monitor 2. Essential (primary) hypertension: 3. Atypical chest pain: 4. Bilateral lower extremity edema: 5. Tachy-tom syndrome: Plan: 84-year-old female with past medical history of hypothyroidism on levothyroxine 50 mcg daily, hypertension on antihypertensives and diabetes controlled with HbA1c of 6.7 on oral antihyperglycemic agents came to the ER due to feeling of something stuck in the throat after she took her medications. And also some atypical chest pain. And found to have inflammation and thickening of the esophagus on CT scan with possible reflux disease and mild to moderate hiatal hernia. Considering her age and comorbidities ACS was a differential and to rule out. - Continue aspirin 81 mg daily and atorvastatin 20 mg - Troponin trend was not significant And her recent echo in January showed ejection fraction of 61% with no regional wall motion abnormalities - Cardiology consult and to proceed with a stress test as per recommendation - Monitor her vitals Tachybradycardia syndrome?: Seen by the certified prosthetist/orthotist and possible aberrant reading however continue on Coreg 25 mg twice daily and monitor her on telemetry Odynophagia likely related to hiatal hernia and GERD - Currently resolving -Continue adequate analgesia - Protonix, Carafate - Based on clinical progress patient might require EGD Type 2 diabetes mellitus, low-dose sliding scale DNR/DNI Lovenox for DVT prophylaxis PDMP PDMP Reviewed: Not Reviewed Attestations 2 Medical Necessity Statement*: The patient will stay to rule out acute coronary syndrome and for nuclear stress test Time Spent in Patient Care: Greater than 35 minutes (>than 50% of time spent in counselling and/or direct pt care on unit) . The high probability of a clinically significant, sudden or life threatening deterioration, as referenced in this documentation, required my full and direct attention, intervention and personal management. The critical care time shown is in addition to time spent performing any reported separately billable procedures and includes the following: [x] Data and vital sign review and interpretation [x ] Patient assessment, examination and intervention [x] Medication orders and management [x] Patient/Family updates as able [x] Care Coordination and Documentation. Critical Care Time: Critical Care Time (min): 45 Other Attestations: This documentation was created by [employer] family life counselor software. Every effort was made to ensure accuracy of family life counselor.? Any obvious errors or omissions should be clarified with the author of the document. Coding Level of Care Code 93652 Diagnoses Odynophagia R13.10 Essential (primary) hypertension I10 Atypical chest pain R07.89 Bilateral lower extremity edema R60.0 Tachy-tom syndrome I49.5
[2025-06-06 03:21] LABS: Hematocrit 35.6 % (36-47); Hemoglobin 11.80 g/dL (11.27-16.99); Mean Corpuscular HGB Conc 33.1 g/dL (30-55); Mean Corpuscular Hemoglobin 28.4 pg (27-33); Mean Corpuscular Volume 85.8 fl (85-98); Nucleated Red Blood Cells % 0 %; Platelet Count 138 10^3/cmm (157-399); Red Blood Count 4.15 10^6/uL (3.85-5.65); White Blood Count 5.91 10^3/uL (3.29-11.43)
[2025-06-06 03:47] LABS: Alanine Aminotransferase 9 U/L (0-33); Albumin Level 3.6 g/dL (3.5-5.2); Alkaline Phosphatase 58 U/L (35-105); Anion Gap 12.5 (5-19); Aspartate Amino Transferase 14 U/L (0-32); Blood Urea Nitrogen 11 mg/dL (8-23); Calcium 8.7 mg/dL (8.5-10.5); Carbon Dioxide 28 mmol/L (22-29); Chloride 99 mmol/L (98-107); Creatinine Clr Calc Pharmacy 52.4892; Globulin 2.4 g/dL (1.3-4.6); Glucose 118 mg/dL (65-115); Osmolality Calculated 282 mOsm/kg (285-295); Potassium 3.5 mmol/L (3.5-5.1); Sodium 136 mmol/L (136-145); Total Protein 6.0 g/dL (6.6-8.7)
[2025-06-06 04:00] VITALS: BP 141/89; PULSE 63; RESP 19; TEMP 36.5; O2SAT 95
[2025-06-06] MEDS: sucralfate 1 gm/10 mL Oral Liq UDC PO ×2 (04:10→08:50)
[2025-06-06] MEDS: pantoprazole 40 mg SDV IVP (04:11)
--- NOTE | 2025-06-06 07:11 | PC.NURSE ---
Patient off the floor to [facility]
[2025-06-06 07:59] VITALS: BP 99/72; PULSE 74
[2025-06-06 08:00] VITALS: BP 139/88; PULSE 51; RESP 17; TEMP 36.5; O2SAT 95
[2025-06-06] MEDS: ATORVASTATIN 10 MG TABLET 20 MG PO (08:50)
--- NOTE | 2025-06-06 08:57 | PC.NURSE ---
Patient received from [facility] via wheelchair. Patient denies pain or needs. Breakfast and am medictions provided. Assisted patient up to bathroom with walker.
--- NOTE | 2025-06-06 10:00 | NMCV_ITS ---
NM yisel perf SPECT r/s* [id number] Nery Jimenes Age: 84 Gender: F : 1940 Exam Date: 06/06/2025 07:01 Ordering Phys: Lashon Castaneda NP Technologist: JEFFREY Barragan Exam Location: [facility] Indications: cp STRESS TEST Please [facility] separate stress [facility] for full findings IMAGE PROTOCOL Rest/Stress 1 Lexiscan Day Radiopharmaceutical Dose (mCi) Administration Site Administered by Rest: Tc-99m 10.4 IV Viri Suarez, DISTRIBUTION SUPERINTENDENT Sestamibi Stress:Tc-99m 32.2 IV Viri Erick, DISTRIBUTION SUPERINTENDENT Sestamibi Rest: 06-Jun-2025 60 Discovery 630 Stress: 06-Jun-2025 30 Discovery 630 0.4mg Lexiscan. Supine position only as patient was unable to lay prone. SPECT RESULTS Technical Quality: Good Raw Data Analysis: Normal Image Corrections: No attenuation or motion correction applied Summed Stress Score: 5 Summed Rest Score: 5 Summed Difference Score: 1 PERFUSION FINDINGS Medium sized area of fixed perfusion defect noted in the apex of the left ventricle most likely reason apical thinning artifact in the absence of wall motion abnormality FUNCTIONAL RESULTS (calculated via Gated SPECT) Stress Image LV EF (%): 71 Stress EDV (mL):68 TID: 1.17 Stress ESV (mL):20 FUNCTIONAL FINDINGS: There is normal left ventricular systolic function. IMPRESSIONS Myocardial perfusion imaging is not suggestive of ischemia and low probability for obstructive coronary artery disease. EKG segment will be documented separately. Coleen Trinidad MD (Electronically Signed) Final Date: 06 June 2025 11:12 S
--- NOTE | 2025-06-06 11:13 | P.PN_ITS ---
Subjective 2 Subjective: Patient doing well. No signs or symptoms of chest pain or shortness of breath. She has stress test today. Vital signs are stable. Vitals/I&O/Wt Last Vital Signs Temp 97.7 F 06/06/25 08:00 Pulse 51 L 06/06/25 08:00 Resp 17 06/06/25 08:00 BP 139/88 06/06/25 08:00 Pulse Ox 95 06/06/25 08:00 O2 Del Method Room Air 06/06/25 04:00 06/05/25 06/06/25 06/06/25 22:59 06:59 14:59 Intake Total 720 / 2220 540 / 540 Output Total 600 / 600 Balance 720 / 2220 -600 / 1620 540 / 540 Weight last 48 hrs Weight 154 lb Weight 155 lb 7 oz Weight 158 lb 4 oz Weight 157 lb 6.4 oz Physical Exam 2 Narrative: General: No apparent distress HENMT: normoceophalic Muskuloskeletal: Full ROM Respiratory: Normal respiratory effort, clear to auscultation bilaterally throughout all lung damon, no use of accessory muscles Cardio: No JVD, regular rate, regular rhythm, S1 S2 normal, no murmurs, peripheral pulses 2+ radial palpated bilaterally Extremities: Full ROM, normal, normal capillary refill, no cyanosis or edema Neuro: Alert and oriented x4, no focal motor deficits Psych: Affect normal, mental status grossly normal Skin: No rashes or lesions noted, no wounds Data 06/06/25 03:00 06/06/25 03:00 A&P Assessment and plan 1. Elevated troponin: 2. Essential (primary) hypertension: 3. Atypical chest pain: Plan: Patient had stress test this morning. Further recommendations to follow. If negative, patient may be discharged from cardiology standpoint. Will review with further recommendations. PDMP PDMP Reviewed: Not Reviewed Attestations 2 Medical Necessity Statement*: Deferred to primary. Coding Level of Care Code Acute Code for [facility] Fwd Diagnoses Elevated troponin R79.89 Essential (primary) hypertension I10 Atypical chest pain R07.89
[2025-06-06 11:45] VITALS: BP 149/75; PULSE 61; RESP 19; TEMP 36.8; O2SAT 100
--- NOTE | 2025-06-06 13:43 | P.DS_ITS ---
Discharge Providers Date of Admission: 06/05/25 01:52 Date of Discharge: June 06, 2025 Attending Provider at Admission: Elpidio Romo MD Attending Provider at Discharge: Dawna Olmos MD Primary Care Provider: SCOTT Price Diagnoses at Discharge Discharge Diagnosis 1. Elevated troponin: 2. Essential (primary) hypertension: 3. Atypical chest pain: Reason for Visit Reason for Visit: SOB, Tremors, something in throat Brief History: emanuel Jimenes is a 84 year old female with a past medical history of type 2 diabetes mellitus, hypothyroidism, hypertension who presents [facility] due to odynophagia, atypical chest pain, weakness. Patient tells me that tonight she was taking her pills, when she felt as if that pill was stuck in her mid chest, in her esophagus, she drank a whole glass of water but continued to have a sensation of chest discomfort, associate with weakness, fatigue, she also had a tremor during this episode, she also reports increased shortness of breath recently, with lower extremity edema Hospital Course Hospital Course During her hospital stay, the patientBlood works, electrolytes and troponins were monitored. There was no significant marked increase in troponins co ncerning for any MS or ACS. her urine analysis did not show any signs of infection. Her chest pain resolved during her stay. EKG and chest x-ray reviewed. she required IV Lasix and her lower limb edema resolved. She was seen by the medical van driver and discussed her case. Nuclear stress test was done and it was negative for ischemia. Patient was cleared by the cardiology and discharged home with home medications. The patient was informed about the plan of care without any language barrier. Agreed with the plan and question and concerns were addressed Physical Exam Narrative: General: Alert oriented x3, patient seen lying comfortably without any distress HEENT: Normocephalic, atraumatic, EOMI, breathing at room air with normal oxygen saturation Cardio: Regular rate rhythm, normal S1-S2, no murmurs rubs gallops, JVD normal Respiratory: Good bilateral air entry, no wheezes no rhonchi appreciated GI: Abdomen soft, nontender, nondistended, normoactive bowel sounds present all 4 quadrants, Neuro: Cranial nerves II to XII intact, strength 5/5, sensation 5/5, no gross neurological deficit Behavior: Appropriate and cooperative Extremities: Pulses 2+, trace edema, no cyanosis Skin: Visible skin intact, no rashes Discharge Data Studies Completed and Pending Completed Studies During Hospitalization Category Date Time Status CT angio chest PE protcl [id number] Stat Cat Scan 06/04/25 23:50 Completed Cardiac Stress Test MIBI [Sestamibi Stress Test Request Exams 06/05/25 10:00 Draft ] Routine XR chest 1V portable [id number] Stat Exams 06/04/25 23:50 Completed NM yisel perf SPECT r/s* [id number] Routine Nuc Med 06/06/25 10:00 Completed CV. echo complete* [id number] Stat Ultrasound 06/05/25 02:44 Completed Radiology Impressions Chest CTA 06/04/25 23:50 IMPRESSION: No definitive radiographic evidence of pulmonary embolism. No acute infiltrate. Aortic and coronary atherosclerosis. Probable thickening of the esophagus, could be related to inflammatory changes or reflux with other etiologies not excluded. [id number] hiatal hernia. Chest X-Ray 06/04/25 23:50 IMPRESSION: No acute findings. Laboratory Results WBC 5.91 10^3/uL (3.29-11.43) 06/06/25 03:00 RBC 4.15 10^6/uL (3.85-5.65) 06/06/25 03:00 Hgb 11.80 g/dL (11.27-16.99) 06/06/25 03:00 Hct 35.6 % (36-47) L 06/06/25 03:00 MCV 85.8 fl (85-98) 06/06/25 03:00 MCH 28.4 pg (27-33) 06/06/25 03:00 MCHC 33.1 g/dL (30-55) 06/06/25 03:00 RDW 14.4 % (12.1-15.1) 06/06/25 03:00 Plt Count 138 10^3/cmm (157-399) L 06/06/25 03:00 MPV 9.7 fL (7.4-10.4) 06/06/25 03:00 Neut % (Auto) 58.2 % 06/06/25 03:00 Lymph % (Auto) 30.1 % 06/06/25 03:00 [place] % (Auto) 10.0 % 06/06/25 03:00 Eos % (Auto) 1.2 % 06/06/25 03:00 Baso % (Auto) 0.3 % 06/06/25 03:00 Neut # (Auto) 3.44 10^3/uL (1.8-7.7) 06/06/25 03:00 Lymph # (Auto) 1.8 10^3/uL (0.8-4.8) 06/06/25 03:00 [place] # (Auto) 0.6 10^3/uL (0.2-0.9) 06/06/25 03:00 Eos # (Auto) 0.1 10^3/uL (0.0-0.8) 06/06/25 03:00 Baso # (Auto) 0.0 10^3/uL (0.0-0.1) 06/06/25 03:00 Nucleated RBC % (auto) 0 % 06/06/25 03:00 Nucleated RBCs # 0.0 /100WBC 06/06/25 03:00 Sodium 136 mmol/L (136-145) 06/06/25 03:00 Potassium 3.5 mmol/L (3.5-5.1) 06/06/25 03:00 Chloride 99 mmol/L (98-107) 06/06/25 03:00 Carbon Dioxide 28 mmol/L (22-29) 06/06/25 03:00 Anion Gap 12.5 (5-19) 06/06/25 03:00 BUN 11 mg/dL (8-23) 06/06/25 03:00 Creatinine 0.7 mg/dL (0.5-0.9) 06/06/25 03:00 GFR Calculation Not Reportable 06/06/25 03:00 Glucose 118 mg/dL (65-115) H 06/06/25 03:00 POC Glucose 108 mg/dL (70-110) 06/06/25 11:06 Calculated Osmolality 282 mOsm/kg (285-295) L 06/06/25 03:00 Calcium 8.7 mg/dL (8.5-10.5) 06/06/25 03:00 Magnesium 1.7 mg/dL (1.7-2.3) 06/05/25 00:22 Total Bilirubin 1.1 mg/dL (0.15-1.2) 06/06/25 03:00 AST 14 U/L (0-32) 06/06/25 03:00 ALT 9 U/L (0-33) 06/06/25 03:00 Alkaline Phosphatase 58 U/L (35-105) 06/06/25 03:00 Troponin T Baseline 30 ng/L (0-10) H 06/05/25 00:22 Troponin T 120 Minute 26.05 ng/L (0-10) H 06/05/25 02:48 Delta Troponin T -3.95 ABS# (0-10) L 06/05/25 02:48 Troponin T Hi Sens 6Hr 23.43 ng/L (0-10) H 06/05/25 06:02 Troponin T Hi Sens 6Hr Delta -6.57 ng/L (0-12) L 06/05/25 06:02 NT-Pro-B Natriuret Pep 569 pg/mL (0-450) H 06/05/25 02:48 Total Protein 6.0 g/dL (6.6-8.7) L 06/06/25 03:00 Albumin 3.6 g/dL (3.5-5.2) 06/06/25 03:00 Globulin 2.4 g/dL (1.3-4.6) 06/06/25 03:00 Triglycerides 27 mg/dL (0-150) 06/05/25 06:02 Cholesterol 157 mg/dL (0-200) 06/05/25 06:02 LDL Cholesterol, Calc 87 mg/dL (50-129) 06/05/25 06:02 HDL Cholesterol 65 mg/dL (60-100) 06/05/25 06:02 LDL/HDL Ratio 1.34 RATIO (0.00-3.22) 06/05/25 06:02 Cholesterol/HDL Ratio 2.42 mg/dL (0.0-4.40) 06/05/25 06:02 TSH 2.39 uIU/mL (0.27-4.20) 06/05/25 06:02 Urine Color Yellow (Yellow) 06/05/25 00:09 Urine Appearance Clear (CLEAR) 06/05/25 00:09 Urine pH 6.0 (5-7) 06/05/25 00:09 Ur Specific [place] 1.008 (1.005-1.030) 06/05/25 00:09 Urine Protein Negative (Negative) 06/05/25 00:09 Urine Glucose (UA) Negative (Normal) 06/05/25 00:09 Urine Ketones Negative (Negative) 06/05/25 00:09 Urine Blood Negative (Negative) 06/05/25 00:09 Urine Nitrate Negative (Negative) 06/05/25 00:09 Urine Bilirubin Negative (Negative) 06/05/25 00:09 Urine Urobilinogen 0.2 mg/dL (Negative) 06/05/25 00:09 Ur Leukocyte Esterase Trace (Negative) A 06/05/25 00:09 Urine RBC 0-2 /hpf (0-2) 06/05/25 00:09 Urine WBC 0-5 /hpf (0-5) 06/05/25 00:09 Ur Squamous Epith Cells 0-5 /hpf (0-5) 06/05/25 00:09 Amorphous Sediment Not Reportable 06/05/25 00:09 Urine Bacteria None seen /hpf (NONE) 06/05/25 00:09 Hyaline Casts 0-4 /lpf H 06/05/25 00:09 Vitals Last Vital Signs Temp 98.2 F 06/06/25 11:45 Pulse 61 06/06/25 11:45 Resp 19 H 06/06/25 11:45 BP 149/75 06/06/25 11:45 Pulse Ox 100 06/06/25 11:45 O2 Del Method Room Air 06/06/25 04:00 Discharge Plan Discharge Patient Disposition: Home Condition: Stable Prescriptions: Continued Dimetapp Cold-Allergy(brom-PE) 1-2.5 mg/5 mL solution 5 ml PO .12 hours PRN (Reason: cold symptoms) Qty: 118 0RF multivitamin [Daily Multi-Vitamin] Tablet 1 tab PO DAILY Qty: 90 1RF amlodipine [Norvasc] 5 mg tablet 5 mg PO DAILY Qty: 90 1RF aripiprazole [Abilify] 5 mg tablet 5 mg PO DAILY Qty: 90 1RF carvedilol [Coreg] 25 mg tablet 25 mg PO BID Qty: 180 1RF Rx Instructions: must administer with a meal/food furosemide [Lasix] 20 mg tablet 20 mg PO QAM Qty: 90 1RF levothyroxine [Synthroid] 50 mcg tablet 50 mcg PO DAILY Qty: 90 1RF lisinopril [Zestril] 40 mg tablet 40 mg PO DAILY Qty: 90 1RF rosuvastatin 5 mg tablet 5 mg PO DAILY Qty: 90 1RF sertraline [Zoloft] 50 mg tablet 50 mg PO .6pm Qty: 90 1RF Januvia 100 mg tablet 100 mg PO DAILY Qty: 90 1RF (DME) blood-glucose meter [Accu-Chek Guide Me Glucose Mtr] Misc See Rx Instructions .Route Qty: 1 0RF Rx Instructions: As directed (DME) Accu-Chek Guide test strips Strip See Rx Instructions .Route Qty: 100 5RF Rx Instructions: use one time daily polyvinyl alcohol 1.4 % Drops 1 drp ophthalmic (eye) BID Rx Instructions: 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 At length the discussion about her condition was discussed with the patient and the family and also with the cardiology. Further management and treatment was done after discussing and agreement with the patient and her family. Discharge plan of care discussed with the patient agreed with the plan of care without any language barrier Discharge Attestations Time Spent in Discharge Care*: greater than 30 min Specific Discharge Activities: educating patient, educating and/or supporting family/caregiver, discussing with pcp/other providers, discussing with case management specialist/social workers/dc planners, documenting/other paperwork and evaluating patient/reviewing data Status at Discharge: Cognitive status at discharge: cognitively intact , Behavioral status at discharge: cooperative , Functional status at discharge: independent ambulation , Overall status at discharge: patient is back to baseline Quality Metrics Clinical Quality Measures [ No reported AMI, CVA or VTE this stay] Coding Level of Care Code 97302 Diagnoses Elevated troponin R79.89 Essential (primary) hypertension I10 Atypical chest pain R07.89
[2025-06-06 14:00] VITALS: PULSE 112
--- NOTE | 2025-06-06 14:29 | PC.NURSE ---
Patient discharged to SNF. Report called to PENNY Gold at [facility]. Patient taken by wheelchair to private vehicle. Granddaughter to provided transportation.
== END 2025-06-06 14:30 | disposition home or self-care (01) ==
LOC: ER 06-05 02:25 → CSU 06-05 02:43
PROVIDERS: Admitting Provider Family Medicine; Emergency Provider Emergency Medicine; PCP Nurse Practitioner; Visit Provider Student in an Organized Health Care Education/Training Program
DX: R07.89 Other chest pain (principal); R79.89 Other specified abnormal findings of blood chemistry; R13.19 Other dysphagia; I10 Essential (primary) hypertension; E11.649 Type 2 diabetes mellitus with hypoglycemia without coma; E03.9 Hypothyroidism, unspecified; R60.0 Localized edema; I49.5 Sick sinus syndrome; R13.10 Dysphagia, unspecified; Z79.82 Long term (current) use of aspirin; Z66 Do not resuscitate; E78.2 Mixed hyperlipidemia; G20.A1 Parkinson's disease without dyskinesia, without mention of fluctuations; Z83.3 Family history of diabetes mellitus
CPT/HCPCS: 36415; 36416; 71045; 71275; 78452; 80053; 80061; 81001; 82962; 83735; 83880; 84443; 84484; 85025; 93005; 93017; 93306; 94664; 96372; 96374; 96375; 99285; A9500; G0378; J1100; J1650; J1815; J1938; J2470; J2785; J7040; J9999

== ENCOUNTER → 2025-06-11 12:23 | Outpatient (BNVA) | payer MEDICARE, SELFPAY | PROVIDERS: PCP Nurse Practitioner; Visit Provider Internal Medicine Cardiovascular Disease | DX: R79.89 Other specified abnormal findings of blood chemistry (principal); I10 Essential (primary) hypertension; K21.9 Gastro-esophageal reflux disease without esophagitis | CPT/HCPCS: 99214 ==

== ENCOUNTER → 2025-07-17 11:33 | Outpatient (BNVA) | payer MEDICARE, SELFPAY | PROVIDERS: PCP Nurse Practitioner; Visit Provider Nurse Practitioner | DX: E11.65 Type 2 diabetes mellitus with hyperglycemia (principal); E03.8 Other specified hypothyroidism; E55.9 Vitamin D deficiency, unspecified; R19.7 Diarrhea, unspecified | CPT/HCPCS: 80053; 80061; 82306; 82607; 83036; 84443; 85025 ==

== ENCOUNTER → 2025-07-29 11:52 | Outpatient (BNVA) | payer MEDICARE, SELFPAY | PROVIDERS: PCP Nurse Practitioner; Visit Provider Nurse Practitioner | DX: E11.65 Type 2 diabetes mellitus with hyperglycemia (principal) | CPT/HCPCS: 82043 ==

== ENCOUNTER 2025-08-01 11:43 | Outpatient (CLI) | payer MEDICARE, SELFPAY ==
--- NOTE | 2025-08-01 12:15 | CTR_ITS ---
PROCEDURE INFORMATION: Exam: CTA Chest With Contrast CTA Abdomen With Contrast Exam date and time: 08/01/2025 12:19 PM Age: 84 years old Clinical indication: Condition or disease; Other: Peripheral vascular disease, unspecified; Prior surgery; Surgery date: 6+ months; Surgery type: Sppy; Additional info: I73.9 - peripheral vascular disease, unspecified TECHNIQUE: Imaging protocol: Computed tomographic angiography of the chest with contrast. Exam focused on the arteries. Computed tomographic angiography of the abdomen with contrast. Exam focused on the arteries. 3D rendering (Not supervised by radiologist): MIP and/or 3D reconstructed images were created by the technologist. Radiation optimization: All CT scans at this facility use at least one of these dose optimization techniques: automated exposure control; mA and/or kV adjustment per patient size (includes targeted exams where dose is matched to clinical indication); or iterative reconstruction. Contrast material: OMNI 350; Contrast volume: 100 ml; Contrast route: INTRAVENOUS (IV); COMPARISON: CT angio chest PE prot [id number] 06/05/2025 1:08 AM RADIATION DOSE METRICS: Total DLP (mGy-cm): 621.76 FINDINGS: VASCULATURE: Pulmonary arteries: Normal. No pulmonary emboli. Aorta: No aortic aneurysm. No aortic dissection. Celiac and mesenteric arteries: No occlusion or significant stenosis. Renal arteries: No occlusion or significant stenosis. CHEST: Lungs: Unremarkable. No consolidation. No masses. Pleural spaces: Unremarkable. No pneumothorax. No pleural effusion. Heart: Unremarkable. No cardiomegaly. No pericardial effusion. Coronary arteries: Coronary artery calcifications. Diaphragm: Small hiatal hernia. ABDOMEN AND PELVIS: Liver: No mass. Gallbladder and biliary ducts: Cholelithiasis. Pancreas: Unremarkable. No mass. No ductal dilation. Spleen: Unremarkable. No splenomegaly. Adrenal glands: Unremarkable. No mass. Kidneys: Unremarkable kidneys. No solid mass. No hydronephrosis. Stomach and bowel: Unremarkable. No obstruction. No mucosal thickening. Intraperitoneal space: Unremarkable. No free air. No significant fluid collection. Lymph nodes: Unremarkable. No enlarged lymph nodes. Bones/joints: Unremarkable. No acute fracture. Soft tissues: Rectus diastasis. Small anterior abdominal wall hernias containing only fat. CT/[place] [id number] IMPRESSION: 1. No vascular abnormality. 2. Cholelithiasis.
[2025-08-01] MEDS: iohexol 350 mg/mL 500 mL Btl (per mL) IV (12:38)
== END 2025-08-01 11:44 | disposition home or self-care (01) ==
LOC: RAD 11:44
PROVIDERS: PCP Nurse Practitioner; Visit Provider Nurse Practitioner
DX: I73.9 Peripheral vascular disease, unspecified (principal); R93.89 Abnormal findings on diagnostic imaging of other specified body structures; I25.10 Atherosclerotic heart disease of native coronary artery without angina pectoris; K44.9 Diaphragmatic hernia without obstruction or gangrene; K80.20 Calculus of gallbladder without cholecystitis without obstruction; K46.9 Unspecified abdominal hernia without obstruction or gangrene
CPT/HCPCS: 71275; 74175

== ENCOUNTER → 2025-08-20 10:51 | Outpatient (BNVA) | payer MEDICARE, SELFPAY | PROVIDERS: PCP Nurse Practitioner; Visit Provider Nurse Practitioner | DX: R19.7 Diarrhea, unspecified (principal); R19.4 Change in bowel habit | CPT/HCPCS: 82274; 87045; 87427; 87449; 87493 ==

== ENCOUNTER → 2025-09-16 09:22 | Outpatient (BNVA) | payer MEDICARE, SELFPAY | PROVIDERS: PCP Nurse Practitioner; Visit Provider Nurse Practitioner Family | DX: L21.8 Other seborrheic dermatitis (principal); K13.79 Other lesions of oral mucosa; T81.89XA Other complications of procedures, not elsewhere classified, initial encounter; X58.XXXA Exposure to other specified factors, initial encounter; R60.0 Localized edema; L97.819 Non-pressure chronic ulcer of other part of right lower leg with unspecified severity; I87.2 Venous insufficiency (chronic) (peripheral); D48.5 Neoplasm of uncertain behavior of skin; L57.0 Actinic keratosis | CPT/HCPCS: 11102; 17000; 99204 ==

== ENCOUNTER → 2025-09-18 12:37 | Outpatient (BNVA) | payer MEDICARE, SELFPAY | PROVIDERS: PCP Nurse Practitioner; Visit Provider Nurse Practitioner | DX: L03.90 Cellulitis, unspecified (principal); E11.65 Type 2 diabetes mellitus with hyperglycemia | CPT/HCPCS: 73610; 80053; 85025 ==